=== PATIENT | female | born 1970 | race Caucasian/White ===

== ENCOUNTER → 2018-03-06 | Outpatient (CLI) | payer OTHER | END | disposition home or self-care (01) | LOC: Rad HDHVI 16:04 | PROVIDERS: ATTEND Internal Medicine Cardiovascular Disease | DX: I35.8 Other nonrheumatic aortic valve disorders (principal); R06.02 Shortness of breath | CPT/HCPCS: 93306 ==

== ENCOUNTER → 2018-10-31 | Outpatient (CLI) | payer OTHER ==
[2018-10-31 15:32] LABS: Urine Blood 2+ /uL (Negative)
== END | disposition home or self-care (01) ==
LOC: LABCORP 13:05
PROVIDERS: ATTEND Internal Medicine Cardiovascular Disease
DX: N39.0 Urinary tract infection, site not specified (principal)
CPT/HCPCS: 81003; 87086

== ENCOUNTER → 2019-08-10 | Outpatient (CLI) | payer OTHER ==
[~2019-08-10] VITALS: Ht 160 cm; Wt 72.6 kg
[~2019-08-10] MED LIST: ADENOSINE 61 MG in GIVE UN-DILUTED 0 ML IV ONE; ADENOSINE 90 MG/30 ML INJ IV ONE
== END | disposition home or self-care (01) ==
LOC: Rad HDHVI 13:20
PROVIDERS: ATTEND Internal Medicine Cardiovascular Disease
DX: I08.8 Other rheumatic multiple valve diseases (principal); K21.9 Gastro-esophageal reflux disease without esophagitis; R06.02 Shortness of breath; F41.9 Anxiety disorder, unspecified; N39.0 Urinary tract infection, site not specified; J45.909 Unspecified asthma, uncomplicated; N80.9 Endometriosis, unspecified; E78.5 Hyperlipidemia, unspecified; Z90.49 Acquired absence of other specified parts of digestive tract
CPT/HCPCS: 78452; 82962; 93005; 93306; 96374; 96375; A9500; J0153

== ENCOUNTER → 2020-05-17 | Outpatient (CLI) | payer BC | END | disposition home or self-care (01) | LOC: XY 10:17 | PROVIDERS: ATTEND Internal Medicine Cardiovascular Disease | DX: I10 Essential (primary) hypertension (principal); M79.662 Pain in left lower leg; M79.661 Pain in right lower leg; E78.5 Hyperlipidemia, unspecified; M79.89 Other specified soft tissue disorders; R60.9 Edema, unspecified; I87.2 Venous insufficiency (chronic) (peripheral); J45.909 Unspecified asthma, uncomplicated | CPT/HCPCS: 93970 ==

== ENCOUNTER → 2020-06-01 | Outpatient (CLI) | payer BC | END | disposition home or self-care (01) | LOC: Rad HDHVI 16:05 | PROVIDERS: ATTEND Internal Medicine Cardiovascular Disease | DX: E78.5 Hyperlipidemia, unspecified (principal); R00.2 Palpitations; R06.02 Shortness of breath | CPT/HCPCS: 93306 ==

== ENCOUNTER → 2020-06-14 | Outpatient (CLI) | payer BC, OTHER | END | disposition home or self-care (01) | LOC: XY 12:36 | PROVIDERS: ATTEND Internal Medicine Cardiovascular Disease | DX: I10 Essential (primary) hypertension (principal); E78.5 Hyperlipidemia, unspecified; I82.409 Acute embolism and thrombosis of unspecified deep veins of unspecified lower extremity; M79.89 Other specified soft tissue disorders; I87.2 Venous insufficiency (chronic) (peripheral); R60.9 Edema, unspecified; J45.909 Unspecified asthma, uncomplicated; R07.9 Chest pain, unspecified; R06.02 Shortness of breath; R42 Dizziness and giddiness; Z88.5 Allergy status to narcotic agent; Z88.1 Allergy status to other antibiotic agents; Z91.011 Allergy to milk products | CPT/HCPCS: 71045; 78582; A9540; A9558 ==

== ENCOUNTER → 2021-05-12 | Outpatient (CLI) | payer BC ==
[2021-05-12 11:44] LABS: Basophils # (auto) 0 10 ^3/uL (0-0.2); Basophils % (auto) 0.7 % (0.0-2.0); Eosinophils # (auto) 0.2 10 ^3/uL (0-0.8); Eosinophils % (auto) 2.6 % (0.0-7.0); Hematocrit 40.2 % (36.0-46.0); Hemoglobin 14.2 g/dL (12.2-16.2); Lymphocytes # (auto) 2.4 10 ^3/uL (0.4-5.4); Mean Corpuscular Hemoglobin 30.5 pg (28.0-32.0); Mean Corpuscular Hgb Conc. 35.2 g/dL (32.0-36.0); Mean Corpuscular Volume 86.7 fL (80.0-100.0); Monocytes # (auto) 0.7 10 ^3/uL (0-1.3); Neutrophils # (auto) 3.4 10 ^3/uL (1.6-8.6); Neutrophils % (auto) 50.7 % (37.0-80.0); Nucleated Red Blood Cells % 0.2 %; Platelet Count (auto) 210 10^3/uL (140-450); Red Blood Cells 4.64 10^6/uL (4.0-5.20); Red Cell Distribution Width 13.9 % (11.8-14.3); White Blood Cell 6.8 10^3/uL (4.4-10.8)
[2021-05-12 11:46] LABS: Urine Blood Negative /uL (Negative); Urine Specific Gravity 1.021 (1.001-1.035)
[2021-05-12 11:56] LABS: Calcium 9.3 mg/dL (8.5-10.1)
[2021-05-12 12:02] LABS: Free T4 (Free Thyroxine) 1.09 ng/dL (0.89-1.76)
[2021-05-12 12:03] LABS: Albumin 3.9 g/dL (3.4-5.0); BUN/Creatinine Ratio 15.3; Bilirubin, Total 0.6 mg/dL (0.2-1.0); Total Protein 7.4 g/dL (6.4-8.2)
== END | disposition home or self-care (01) ==
LOC: LAB 07:59
PROVIDERS: ATTEND Internal Medicine
DX: D51.3 Other dietary vitamin B12 deficiency anemia (principal); I10 Essential (primary) hypertension; E11.9 Type 2 diabetes mellitus without complications; E55.9 Vitamin D deficiency, unspecified; D64.9 Anemia, unspecified; R00.2 Palpitations; R53.1 Weakness; R30.0 Dysuria
CPT/HCPCS: 36415; 80053; 80061; 81003; 82306; 82607; 83036; 84439; 84443; 85025; 85049

== ENCOUNTER 2024-04-02 17:08 | Emergency (ER) | payer BC ==
[~2024-04-02] VITALS: Ht 160 cm; Wt 71.8 kg
[2024-04-02 18:33] VITALS: BP 154/86; PULSE 94; RESP 16; TEMP 98.1; O2SAT 95
[2024-04-02] MEDS ORDERED: CEPH500C PO (19:26)
[2024-04-02] MEDS: KETOROLAC TROMETH 30 MG/ML 1ML VIAL IM ONE (19:33)
== END 2024-04-02 19:35 | disposition home or self-care (01) ==
LOC: ER 17:08
DX: L03.115 Cellulitis of right lower limb (principal); I10 Essential (primary) hypertension; E78.5 Hyperlipidemia, unspecified; J45.909 Unspecified asthma, uncomplicated; Z88.0 Allergy status to penicillin; Z88.8 Allergy status to other drugs, medicaments and biological substances; Z79.899 Other long term (current) drug therapy
CPT/HCPCS: 96372; 99283; J1885

== ENCOUNTER 2024-04-26 17:15 | Emergency (ER) | payer BC ==
[~2024-04-26] VITALS: Ht 160 cm; Wt 74.1 kg
[~2024-04-26 17:15] MED LIST changes: -ADENOSINE 61 MG in GIVE UN-DILUTED 0 ML IV ONE; -ADENOSINE 90 MG/30 ML INJ IV ONE; +CEPH500C PO
[2024-04-26] MEDS ORDERED: CLIN1CAP70 PO (20:55)
[2024-04-26] MEDS: CLINDAMYCIN 600MG IV 50 ML IV ONE (21:35)
[2024-04-26 22:30] VITALS: BP 142/78; PULSE 88; RESP 19; TEMP 98.1; O2SAT 98
== END 2024-04-26 22:41 | disposition home or self-care (01) ==
LOC: ER 17:15
DX: L03.115 Cellulitis of right lower limb (principal); J44.9 Chronic obstructive pulmonary disease, unspecified; E78.5 Hyperlipidemia, unspecified; I10 Essential (primary) hypertension; Z88.0 Allergy status to penicillin; Z88.6 Allergy status to analgesic agent
CPT/HCPCS: 96365; 99284; J3490